=== PATIENT | female | born 1970 | race African-American/Black ===

== ENCOUNTER 2019-01-01 22:02 | Emergency (ER) | payer OTHER ==
[~2019-01-01] VITALS: Ht 162.6 cm; Wt 77.0 kg
[2019-01-02] MEDS ORDERED: ACETAMINOPHEN 500MG TABLET PO ONE (08:30)
[2019-01-02 09:00] VITALS: BP 158/81
== END 2019-01-02 10:56 | disposition home or self-care (01) ==
LOC: ER 22:17
DX: M25.561 Pain in right knee (principal); M19.90 Unspecified osteoarthritis, unspecified site; F14.10 Cocaine abuse, uncomplicated; Z98.51 Tubal ligation status
CPT/HCPCS: 73562; 99283; Z7610

== ENCOUNTER 2025-04-11 10:26 | Emergency (ER) | payer OTHER ==
[~2025-04-11] VITALS: Ht 165.1 cm; Wt 64.0 kg
[2025-04-11 10:46] VITALS: O2SAT 97
[2025-04-11] MEDS: IBUPROFEN 600MG TABLET PO STA (11:11)
[2025-04-11] MEDS: ACETAMINOPHEN 325MG TABLET PO STA (11:11)
[2025-04-11] MEDS ORDERED: TOPUD PO (12:26)
[2025-04-11] MEDS ORDERED: IBUP-2030 MT (12:26)
[2025-04-11 12:40] VITALS: BP 168/74; PULSE 77; RESP 16; TEMP 36.9; O2SAT 100
== END 2025-04-11 12:40 | disposition home or self-care (01) ==
LOC: ER 10:26
DX: M17.11 Unilateral primary osteoarthritis, right knee (principal); Z98.51 Tubal ligation status
CPT/HCPCS: 73560; 99283